=== PATIENT | male | born 1945 | race Caucasian/White ===

== ENCOUNTER → 2023-09-26 07:56 | Outpatient (BNVA) | payer OTHER, SELFPAY | PROVIDERS: Family Provider Emergency Medicine Emergency Medical Services; PCP Emergency Medicine Emergency Medical Services; Referring Provider Emergency Medicine Emergency Medical Services; Visit Provider Nurse Practitioner Family | DX: L57.0 Actinic keratosis (principal); L57.8 Other skin changes due to chronic exposure to nonionizing radiation; L82.0 Inflamed seborrheic keratosis; L98.8 Other specified disorders of the skin and subcutaneous tissue; L72.0 Epidermal cyst; L82.1 Other seborrheic keratosis; D22.5 Melanocytic nevi of trunk; L81.4 Other melanin hyperpigmentation | CPT/HCPCS: 17000; 17110; 99203 ==

== ENCOUNTER → 2023-10-17 09:00 | Outpatient (BNVA) | payer OTHER, SELFPAY | PROVIDERS: Family Provider Emergency Medicine Emergency Medical Services; PCP Emergency Medicine Emergency Medical Services; Visit Provider Dermatology | DX: D48.5 Neoplasm of uncertain behavior of skin (principal); L57.0 Actinic keratosis; D23.72 Other benign neoplasm of skin of left lower limb, including hip; L82.1 Other seborrheic keratosis | CPT/HCPCS: 11403; 11404; 12032; 13101; 17000; 99213 ==